=== PATIENT | female | born 1990 | race Caucasian/White ===

== ENCOUNTER 2020-02-26 17:33 | Inpatient (IN) | payer OTHER ==
[2020-02-26] MEDS ORDERED: RINGERS SOLUTION,LACTATED 1,000 ML IV PRN (17:41)
[2020-02-26] MEDS ORDERED: OXYTOCIN 30 UNITS/LACT RINGERS 500 ML IV ONE (17:41)
[2020-02-26] MEDS ORDERED: METHYLERGONOVINE MALEATE 0.2 MG/ML VIAL IM PRN (17:45)
[2020-02-26] MEDS ORDERED: CARBOPROST TROMETHAMINE 250 MCG/ML AMP IM PRN (17:45)
[2020-02-26] MEDS ORDERED: TERBUTALINE SULFATE 1 MG/ML VIAL SQ PRN (17:45)
[2020-02-26] MEDS ORDERED: CITRIC ACID/SODIUM CITRATE 30 ML SOLUTION UDCUP PO PRN (17:45)
[2020-02-26] MEDS ORDERED: FentaNYL CITRATE-PF 100 MCG/2 ML VIAL IVP PRN (17:45)
[2020-02-26] MEDS ORDERED: LIDOCAINE/PF 1% 30 ML VIAL INJ PRN (17:45)
[2020-02-26] MEDS ORDERED: METOCLOPRAMIDE HCL 5 MG/ML 2 ML VIAL IVP PRN (17:45)
[2020-02-26] MEDS ORDERED: MISOPROSTOL 25 MCG TABLET PR ONE (17:45)
[2020-02-26] MEDS: RINGERS SOLUTION,LACTATED 1,000 ML IV SCH ×2 (18:21→23:58)
[2020-02-26 18:42] VITALS: BP 102/62
[2020-02-26 19:00] LABS: BASOPHILS % (AUTO) 0.1 % (0.0-2.0); EOSINOPHILS % (AUTO) 0.5 % (1.0-6.0); HEMOGLOBIN 10.4 g/dL (12.0-16.0); LYMPHOCYTES # (AUTO) 1.5 K/uL (1.0-4.8); LYMPHOCYTES % (AUTO) 18.4 % (22.0-44.0); MEAN CORPUSCULAR HEMOGLOBIN 25.8 pg (26.0-34.0); MEAN CORPUSCULAR HGB CONC 32.4 G/dL (31.0-37.0); MEAN CORPUSCULAR VOLUME 80 fL (80-100); MONOCYTES # (AUTO) 0.4 K/uL (0.1-1.0); MONOCYTES % (AUTO) 4.7 % (2.0-9.0); NEUTROPHILS # (AUTO) 6.2 K/uL (1.8-7.7); NEUTROPHILS % (AUTO) 76.3 % (40.0-70.0); PLATELET COUNT (AUTO)-OB 179 K/uL (150-450); RED BLOOD CELL COUNT(AUTO) 4.01 MIL/uL (4.00-5.20)
[2020-02-26] MEDS ORDERED: MISOPROSTOL 50 MCG TABLET PO ONE (19:00)
[2020-02-26] MEDS ORDERED: MISOPROSTOL 50 MCG TABLET ONE (19:17)
[2020-02-26] MEDS: MISOPROSTOL 50 MCG TABLET PO SCH ×2 (19:25→23:41)
[2020-02-26] MEDS ORDERED: OXYGEN THERAPY IH SCH (20:00)
[2020-02-27] MEDS: MISOPROSTOL 50 MCG TABLET PO SCH (03:45)
[2020-02-27] MEDS: RINGERS SOLUTION,LACTATED 1,000 ML IV SCH ×3 (04:55→07:59)
[2020-02-27] MEDS ORDERED: ROPIVACAINE HCL/PF 0.2% 100 ML ED ONE (06:30)
[2020-02-27] MEDS ORDERED: OXYTOCIN 30 UNITS/LACT RINGERS 500 ML IV PRN (08:05)
[2020-02-27] MEDS ORDERED: CeFAZolin 2 GM/DEXTROSE 50 ML IV ONE ×2 (12:18→12:30)
[2020-02-27] MEDS ORDERED: BENZOCAINE 20%/MENTHOL 56 GM SPRAY CANISTER TP PRN (12:45)
[2020-02-27] MEDS ORDERED: LANOLIN 7 GM OINTMENT TP PRN (12:45)
[2020-02-27] MEDS ORDERED: ACETAMINOPHEN/CODEINE 300-30 MG TABLET PO PRN ×2 (12:45)
[2020-02-27] MEDS ORDERED: GLYCERIN/WITCH HAZEL LEAF 40 PADS JAR TP PRN (12:45)
[2020-02-27] MEDS: IBUPROFEN 800 MG TABLET PO SCH ×2 (15:20→21:18)
[2020-02-27] MEDS: MAGNESIUM HYDROXIDE SUSPENSION 30 ML UDCUP PO SCH (21:18)
[2020-02-28] MEDS: IBUPROFEN 800 MG TABLET PO SCH ×2 (02:55→08:56)
[2020-02-28] MEDS: MAGNESIUM HYDROXIDE SUSPENSION 30 ML UDCUP PO SCH (08:57)
[2020-02-28] MEDS ORDERED: IBUP-2070 PO (12:05)
[2020-02-28] MEDS ORDERED: DOCU-275 PO (12:07)
== END 2020-02-28 13:00 | disposition home or self-care (01) | DRG 807 ==
LOC: OBSVTOIN 17:33 → 4S 17:33
PROVIDERS: ADMIT Obstetrics & Gynecology; ATTEND Obstetrics & Gynecology
PROC: 10E0XZZ Delivery of Products of Conception, External Approach (ICD-10-PCS; principal; 2020-02-27)
PROC: 0W8NXZZ Division of Female Perineum, External Approach (ICD-10-PCS; 2020-02-27)
PROC: 3E0R3BZ Introduction of Anesthetic Agent into Spinal Canal, Percutaneous Approach (ICD-10-PCS; 2020-02-27)
PROC: 00HU33Z Insertion of Infusion Device into Spinal Canal, Percutaneous Approach (ICD-10-PCS; 2020-02-27)
DX: O80 Encounter for full-term uncomplicated delivery (principal); Z37.0 Single live birth; Z3A.39 39 weeks gestation of pregnancy; Z20.828 Contact with and (suspected) exposure to other viral communicable diseases
CPT/HCPCS: 86850; 86900; 86901; 87426; J0690; J2210; J2590; J2795; J3490; J7120